=== PATIENT | male | born 1995 | race Caucasian/White ===

== ENCOUNTER 2019-12-30 16:42 | Emergency (ER) | payer BC, SELFPAY ==
[2019-12-30 16:54] VITALS: BP 137/59; PULSE 86; RESP 16; TEMP 37.4; O2SAT 100
--- NOTE | 2019-12-30 16:58 | ED.URI ---
HPI - URI/Sore Throat General Chief Complaint: Upper Respiratory Infection Stated Complaint: sore throat/nasal congestion/headache Time Seen by Provider: 12/30/19 16:59 Source: patient and RN notes reviewed History of Present Illness HPI Narrative: Patient is a 24-year-old male that presents the urgent care with complaints of sore throat, sinus congestion, nasal drainage, intermittent headaches. Patient states that started on Saturday and he has been using an allergy pill and aspirin. Patient states that he does work outside occasionally. Denies of any known fever, nausea, vomiting, cough. No other acute complaints. No acute distress noted. Patient read the plan of care. Related Data Home Medications Medication Instructions Recorded Confirmed No Home Medications 12/30/19 12/30/19 Allergies Allergy/AdvReac Type Severity Reaction Status Date / Time No Known Allergies Allergy Unknown Unverified 12/30/19 17:02 Review of Systems Review of Systems: Narrative: CONSTITUTIONAL: Denies fever, chills, or sweats. EYES: Denies visual changes, redness, or discharge. ENT: Reports of sore throat, postnasal drainage and sinus congestion CARDIOVASCULAR: Denies chest pain, palpitations, or edema. RESPIRATORY: Denies cough or dyspnea. GASTROINTESTINAL: Denies abdominal pain, nausea, vomiting, or diarrhea. GENITOURINARY: Denies dysuria or hematuria. SKIN: Denies rash or itching. MUSCULOSKELETAL: Denies back pain, joint pain, or myalgia. NEUROLOGIC: Reports of intermittent headaches All other systems reviewed are negative, except as documented in HPI. PMFSH Comments At the time of my signature, I reviewed and agree with the nursing past medical, surgical, social, and family history. There is no relevant family history pertinent to the patient complaint. Exam Narrative: Exam Narrative: GENERAL: This is a well-nourished, well-developed patient, in no apparent distress. HEAD: normocephalic, atraumatic. EYES: PERRL. Sclera clear/white. Vision is grossly intact. EARS: External ears normal, auditory canals clear and without drainage, TMs normal without perforation. Hearing grossly intact. NOSE: External nose normal with no obvious nasal discharge, nares without redness, no rhinorrhea. THROAT: Mucous membranes moist, mild postnasal drainage with mild erythema noted to posterior oropharynx NECK: Neck supple, non-tender without lymphadenopathy CARDIOVASCULAR: Regular rate and rhythm without murmurs, gallops, or rubs. RESPIRATORY: Clear to auscultation. Breath sounds equal bilaterally. No wheezes, rales, or rhonchi. SKIN: warm, intact with no suspicious lesions or rash, good texture and turgor. NEURO: awake, alert, and oriented to person, place and time. There were no obvious focal neurologic abnormalities. EXTREMITIES: No clubbing, cyanosis, or edema. Course Vital Signs Vital signs: Vital Signs Temperature 99.3 F 12/30/19 16:54 Pulse Rate 86 12/30/19 16:54 Respiratory Rate 16 12/30/19 16:54 Blood Pressure 137/59 L 12/30/19 16:54 Pulse Oximetry 100 12/30/19 16:54 Temperature 99.3 F 12/30/19 16:54 Pulse Rate 86 12/30/19 16:54 Respiratory Rate 16 12/30/19 16:54 Blood Pressure 137/59 L 12/30/19 16:54 Pulse Oximetry 100 12/30/19 16:54 Reviewed MDM - URI/Sore Throat MDM Narrative Medical decision making narrative: Reviewed lab results with the patient. He is aware that strep swab was negative. Educated him on culture and we will call within 72 hours if culture was positive and antibiotics are necessary. Advised the patient to use Claritin with Flonase nasal spray daily. Increase water intake and rest. Use humidifier at night. Do not sleep with the windows open. If you develop any increase in symptoms associated with fevers, nausea, vomiting, abdominal pain?go to the emergency room. Follow-up with your PCP with days or for worsening symptoms or failure to improve. Differential Diagnosis Differential diag
== END 2019-12-30 17:22 | disposition home or self-care (01) ==
PROVIDERS: Emergency Provider Nurse Practitioner Family
DX: J02.9 Acute pharyngitis, unspecified (principal)
CPT/HCPCS: 87081; 87880; 99203; G0463

== ENCOUNTER 2020-06-20 17:37 | Emergency (ER) | payer BC, SELFPAY ==
[2020-06-20 17:41] VITALS: BP 130/57; PULSE 60; RESP 16; TEMP 36.8; O2SAT 100
--- NOTE | 2020-06-20 18:04 | ED.SKABFB ---
HPI - Skin/Abscess/Foreign Bdy General Chief complaint: Skin/Abscess/Foreign Body Stated complaint: cut on left index finger Time Seen by Provider: 06/20/20 17:49 Source: patient and RN notes reviewed Mode of arrival: ambulatory Limitations: no limitations History of Present Illness HPI narrative: Patient presents today complaining of redness to the left second finger. Denies any injury. States it has not continued to worsen since onset 3 days ago. He does report tenderness with touching. Denies itching or drainage. He has tried no [id number] interventions prior to arrival. No history of staph infections, abscesses, boils. complaint: discoloration Related Data Allergies Allergy/AdvReac Type Severity Reaction Status Date / Time No Known Allergies Allergy Unknown Verified 06/20/20 17:50 Review of Systems Review of Systems: Narrative: CONSTITUTIONAL: Denies body aches, fever, chills, or sweats. EYES: Denies visual changes, redness, or discharge. ENT: Denies rhinorrhea, congestion, sore throat, or otalgia. CARDIOVASCULAR: Denies chest pain, palpitations, or edema. RESPIRATORY: Denies cough or dyspnea. GASTROINTESTINAL: Denies abdominal pain, nausea, vomiting, or diarrhea. GENITOURINARY: Denies dysuria or hematuria. SKIN: Redness and mild swelling to the left second finger MUSCULOSKELETAL: Denies back pain, joint pain, or myalgia. NEUROLOGIC: Denies headache, numbness, tingling, or weakness. PSYCH: Denies depression or anxiety. PMFSH Comments At time of signature, I have reviewed and agree with nursing past medical, surgical, social and family history unless otherwise noted. Please see nursing chart for further information. There is no relevant family history pertinent to the presenting complaint Exam Narrative: Exam Narrative: GENERAL: Well-appearing, well-nourished, and in no acute distress. HEAD: Normocephalic, atraumatic. EYES: EOMI. No redness or drainage. Conjunctivae normal. ENT: Mucous membranes pink and moist. NECK: Normal AROM. CHEST: No respiratory distress. EXTREMITIES: Normal range of motion. No edema. SKIN: Warm, dry, no rash. Capillary refill normal. Normal skin turgor. 1 cm round erythematous and slightly edematous area to the left second finger at the DIP with small scabbed area in the center. It does not seem fluctuant. Distal sensation intact. Capillary refill normal. No edema to the finger itself, just to the localized area NEURO: No focal deficits. Alert and oriented x3. Gait steady. PSYCH: Normal affect. No signs of depression or anxiety. Course Vital Signs Vital signs: Vital Signs Temperature 98.2 F 06/20/20 17:41 Pulse Rate 60 06/20/20 17:41 Respiratory Rate 16 06/20/20 17:41 Blood Pressure 130/57 L 06/20/20 17:41 Pulse Oximetry 100 06/20/20 17:41 Temperature 98.2 F 06/20/20 17:41 Pulse Rate 60 06/20/20 17:41 Respiratory Rate 16 06/20/20 17:41 Blood Pressure 130/57 L 06/20/20 17:41 Pulse Oximetry 100 06/20/20 17:41 Reviewed. Pt has been instructed to follow up with his PCP regarding his elevated blood pressure today. Procedures Other Procedure Procedure 1: Other Procedure: Area cleansed with Betadine. Scab removed from lesion with tip of 18-gauge needle. Wound was not lanced. No drainage noted. Area seems to be dry underneath the scab. Patient tolerated procedure well. MDM - Skin/Abscess/Foreign Bdy Differential Diagnosis Differential diagnosis: Likely abscess of skin or subcutaneous tissue, cellulitis, insect bites, impetigo and contact dermatitis Critical Care Time Critical Care Time Critical Care Time: No Discharge Plan Discharge Clinical Impression: Cellulitis Patient Disposition: Home, Self-Care Condition: Stable Instructions: Antibiotic Form, Cellulitis (DC) Additional Instructions: There was no drainage resulting from your finger today. Please take the Bactrim as prescribed. Follow-up if sympto
== END 2020-06-20 18:10 | disposition home or self-care (01) ==
PROVIDERS: Emergency Provider Nurse Practitioner
DX: L03.012 Cellulitis of left finger (principal)
CPT/HCPCS: 99213; G0463

== ENCOUNTER 2021-04-04 15:58 | Emergency (ER) | payer BC, SELFPAY ==
--- NOTE | 2021-04-04 16:02 | ED.SKABFB ---
HPI - Skin/Abscess/Foreign Bdy General Chief complaint: Skin/Abscess/Foreign Body Stated complaint: Possible infection on right Leg from Insect bite Time Seen by Provider: 04/04/21 16:02 Source: patient and RN notes reviewed History of Present Illness HPI narrative: Patient is a 25-year-old male who presents the urgent care with complaints of an insect bite to the right medial ankle. Patient states he noticed on Saturday and has became increased in size, redness and itchiness. Patient denies of any known tick bite or seeing the insect that may have bit him. Patient has been using antiitch cream to the area without much relief. Denies of any fevers, fatigue, nausea, vomiting. No other acute complaints. No acute distress noted. Patient read the plan of care. Some parts of this dictation were generated by voice recognition software and may contain typographical and/or grammatical inaccuracies. Related Data Allergies Allergy/AdvReac Type Severity Reaction Status Date / Time No Known Allergies Allergy Unknown Verified 06/20/20 17:50 Review of Systems Review of Systems: CONSTITUTIONAL: Denies fever, chills, or sweats. EYES: Denies visual changes, redness, or discharge. ENT: Denies rhinorrhea, congestion, sore throat, or otalgia. CARDIOVASCULAR: Denies chest pain, palpitations, or edema. RESPIRATORY: Denies cough or dyspnea. GASTROINTESTINAL: Denies abdominal pain, nausea, vomiting, or diarrhea. GENITOURINARY: Denies dysuria or hematuria. SKIN: Reports of a red itchy insect bite to the right lower leg MUSCULOSKELETAL: Denies back pain, joint pain, or myalgia. NEUROLOGIC: Denies headache, numbness, or weakness. All other systems reviewed are negative, except as documented in HPI. PMFSH Social History Social History Gender identity (if verbalized by the patient): Male Comments At the time of my signature, I reviewed and agree with the nursing past medical, surgical, social, and family history. There is no relevant family history pertinent to the patient complaint. Exam Narrative: GENERAL: This is a well-nourished, well-developed patient, in no apparent distress. HEAD: normocephalic, atraumatic. EYES: PERRL. Sclera clear/white. Vision is grossly intact. EARS: External ears normal NOSE: External nose normal with no obvious nasal discharge, nares without redness, no rhinorrhea. THROAT: Mucous membranes moist NECK: Neck supple CARDIOVASCULAR: Regular rate and rhythm without murmurs, gallops, or rubs. RESPIRATORY: Clear to auscultation. Breath sounds equal bilaterally. No wheezes, rales, or rhonchi. SKIN: 2 x 2 centimeter area of erythemic bull's-eye appearing rash to the medial aspect of the right lower leg/ankle NEURO: awake, alert, and oriented to person, place and time. There were no obvious focal neurologic abnormalities. EXTREMITIES: No clubbing, cyanosis, or edema. Course Vital Signs Vital signs: Vital Signs Temperature 98.6 F 04/04/21 16:04 Pulse Rate 63 04/04/21 16:04 Respiratory Rate 20 04/04/21 16:04 Blood Pressure 118/68 04/04/21 16:04 Pulse Oximetry 100 04/04/21 16:04 Temperature 98.6 F 04/04/21 16:09 Pulse Rate 63 04/04/21 16:09 Respiratory Rate 20 04/04/21 16:09 Blood Pressure 118/68 04/04/21 16:09 Pulse Oximetry 100 04/04/21 16:09 Reviewed MDM - Skin/Abscess/Foreign Bdy MDM Narrative Medical decision making narrative: Advised the patient to use Benadryl/Claritin/Zyrtec as needed for itch. Complete antibiotic regimen as prescribed. Make sure to eat and drink with the medication. If you develop any increase in symptoms associated with severe redness, swelling, fever, nausea, vomiting, lethargy or fatigue?follow-up in the ER or with your PCP for further evaluation. Follow-up with your PCP within 2 to 5 days or for worsening symptoms or failure to improve. Differential Diagnosis Differential diagnosis: Likely abscess of skin or subcutaneous tissue, urticaria, herpes zoster,
[2021-04-04 16:04] VITALS: BP 118/68; PULSE 63; RESP 20; TEMP 37; O2SAT 100
[2021-04-04 16:09] VITALS: BP 118/68; PULSE 63; RESP 20; TEMP 37; O2SAT 100
== END 2021-04-04 16:21 | disposition home or self-care (01) ==
PROVIDERS: Emergency Provider Nurse Practitioner Family
DX: S90.561A Insect bite (nonvenomous), right ankle, initial encounter (principal); W57.XXXA Bitten or stung by nonvenomous insect and other nonvenomous arthropods, initial encounter
CPT/HCPCS: 99213; G0463